=== PATIENT | male | born 1970 | race Caucasian/White ===

== ENCOUNTER 2017-12-06 11:53 | Emergency (ER) | END 2017-12-06 15:31 | disposition home or self-care (01) ==

== ENCOUNTER 2019-01-20 23:25 | Inpatient (IN) | payer OTHER ==
[~2019-01-20] VITALS: Ht 167.6 cm; Wt 98.9 kg
[~2019-01-20 23:25] MED LIST: ACET500C5 PO; ATOR40TA68 PO; CEPH500C PO; CIPR500T4 PO; DOCU-144 PO; DOXY100T20 PO; FENO145T25 PO; FERR160T11 PO; HYDR-762 PO; IBUP-1542 PO; INSU100I33 SC; Insulin Glargine SC; LANT3I SC; LIPA1CAP6 PO; LISI2.5T59 PO; LOSA50TA14 PO; METO-335 PO; Metformin Hcl PO; NICO-546 TRANSDERM; NOVO3I SC; OFLO5DRO46 RIGHT EYE; OMEP20CA9 PO; PEN1DIS.93 MC; PREG50CA PO; SACC250C9 PO; SIMV40TA3 PO; SITA1TAB5 PO; SULF1TAB31 PO; TAMS-14 PO
[2019-01-20 23:28] VITALS: Ht 167.6 cm; Wt 98.9 kg
[2019-01-21] VITALS (13 sets, daily range): BP systolic 127–166; BP diastolic 67–81; PULSE 72–98; RESP 13–18
[2019-01-21] MEDS ORDERED: KETOROLAC 30 MG INJ IV STA (00:23)
[2019-01-21] MEDS ORDERED: ACETAMINOPHEN 325 MG TAB PO PRN (07:30)
[2019-01-21] MEDS ORDERED: ONDANSETRON 4 MG INJ IV PRN ×3 (07:30→19:00)
[2019-01-21] MEDS ORDERED: LEVOFLOXACIN 500 MG TAB PO SCH (08:00)
[2019-01-21] MEDS ORDERED: hydrALAzine 20 MG INJ IV PRN ×2 (08:00→19:00)
[2019-01-21] MEDS ORDERED: morphine 2 MG INJ IV PRN (08:00)
[2019-01-21] MEDS ORDERED: KETOROLAC 30 MG INJ IV PRN (08:30)
[2019-01-21] MEDS ORDERED: LEVOFLOXACIN 500MG/D5W (PMX) 100 ML IVPB SCH (09:00)
[2019-01-21] MEDS: SOD CHLORIDE 0.9% 1,000 ML IV SCH ×2 (09:55→18:00)
[2019-01-21] MEDS: KETOROLAC 30 MG INJ IV PRN ×2 (11:14→23:50)
[2019-01-21] MEDS ORDERED: DEXTROSE 50% 50 ML SYRINGE IV PRN ×2 (13:00)
[2019-01-21] MEDS ORDERED: GLUCOSE GEL 15 GRAM TUBE PO PRN ×2 (13:00)
[2019-01-21] MEDS ORDERED: GLUCAGON 1 MG INJ IM PRN (13:00)
[2019-01-21] MEDS ORDERED: GLUCOSE GEL 15 GRAM TUBE BUCCAL PRN (13:00)
[2019-01-21] MEDS: INSULIN ASPART [NOVOLOG] 3 ML PEN SC SCH ×3 (13:09→20:43)
[2019-01-21] MEDS: NICOTINE (21 MG/24 HR) PATCH TRANSDERM SCH (13:13)
[2019-01-21] MEDS ORDERED: IOHEXOL 300MG/ML 30 ML BTL ONE (16:14)
[2019-01-21] MEDS ORDERED: SUCCINYLCHOLINE CHLORIDE 100 MG/5 ML SYG IV ONE (17:38)
[2019-01-21] MEDS ORDERED: GLYCOPYRROLATE 0.4 MG INJ ONE ×3 (17:38→18:15)
[2019-01-21] MEDS ORDERED: LIDOCAINE 2% (SDV) 5 ML INJ ONE (17:38)
[2019-01-21] MEDS ORDERED: NEOSTIGMINE 3 MG/3 ML SYRINGE ONE ×2 (17:38→18:15)
[2019-01-21] MEDS ORDERED: PROPOFOL 20 ML ONE (17:38)
[2019-01-21] MEDS ORDERED: ROCURONIUM 50 MG INJ ONE (17:38)
[2019-01-21] MEDS ORDERED: CEFAZOLIN 1 GM INJ ONE (18:15)
[2019-01-21] MEDS ORDERED: EPHEDrine 25 MG/5 ML SYG ONE (18:15)
[2019-01-21] MEDS ORDERED: FENTAnyl 50 MCG/ML VIAL ONE (18:49)
[2019-01-21] MEDS ORDERED: FENTAnyl 50 MCG/ML VIAL IV PRN ×3 (19:00)
[2019-01-21] MEDS ORDERED: DIPHENHYDRAMINE 50 MG INJ IV PRN (19:00)
[2019-01-21] MEDS ORDERED: METOCLOPRAMIDE 10 MG INJ IV PRN (19:00)
[2019-01-21] MEDS ORDERED: HYDROmorphONE 1 MG/5 ML IV SYRINGE IV PRN ×3 (19:00)
[2019-01-21] MEDS ORDERED: MIDAZOLAM 1 MG/ML 2 ML INJ IV PRN (19:00)
[2019-01-21] MEDS ORDERED: LABETALOL HCL 20MG INJ IV PRN (19:00)
[2019-01-21] MEDS ORDERED: MEPERIDINE 25 MG INJ IV PRN (19:00)
[2019-01-21] MEDS ORDERED: EPHEDrine 25 MG/5 ML SYG IV PRN (19:00)
[2019-01-21] MEDS ORDERED: INSULIN GLARGINE [LANTus] (100 UNITS/ML) SYG SC SCH (20:00)
[2019-01-21] MEDS: FAMOTIDINE 20 MG INJ IV SCH (20:45)
[2019-01-21] MEDS: HEPARIN 5,000 UNIT/1 ML VIAL SC SCH (21:00)
[2019-01-22] MEDS: INSULIN ASPART [NOVOLOG] 3 ML PEN SC SCH ×6 (01:32→20:34)
[2019-01-22 02:00] VITALS: BP 154/68; PULSE 89; RESP 17
[2019-01-22] MEDS: SOD CHLORIDE 0.9% 1,000 ML IV SCH ×2 (03:16→13:32)
[2019-01-22 08:00] VITALS: BP 159/70; PULSE 81; RESP 16
[2019-01-22] MEDS: HEPARIN 5,000 UNIT/1 ML VIAL SC SCH ×2 (08:40→20:35)
[2019-01-22] MEDS: FAMOTIDINE 20 MG INJ IV SCH ×2 (08:40→20:36)
[2019-01-22] MEDS: NICOTINE (21 MG/24 HR) PATCH TRANSDERM SCH (08:41)
[2019-01-22] MEDS ORDERED: BISACODYL 10 MG SUPP PR PRN (09:30)
[2019-01-22] MEDS ORDERED: BISACODYL (EC) 5 MG TAB PO PRN (09:30)
[2019-01-22] MEDS: POLYETHYLENE GLYCOL 17 GM PACKET PO SCH (09:51)
[2019-01-22] MEDS: KETOROLAC 30 MG INJ IV PRN (11:38)
[2019-01-22 14:00] VITALS: BP 153/70; PULSE 79; RESP 16
[2019-01-22] MEDS ORDERED: CEFTRIAXONE 1 GM/50 ML (PMX) 50 ML IVPB SCH (18:30)
[2019-01-22 20:00] VITALS: BP 163/80; PULSE 90; RESP 17
[2019-01-22] MEDS ORDERED: INSULIN GLARGINE [LANTus] (100 UNITS/ML) SYG SC SCH (20:00)
[2019-01-23 02:00] VITALS: BP 148/77; PULSE 87; RESP 17
[2019-01-23] MEDS: KETOROLAC 30 MG INJ IV PRN (02:54)
[2019-01-23 07:57] VITALS: BP 140/65; PULSE 77; RESP 16
[2019-01-23] MEDS: NICOTINE (21 MG/24 HR) PATCH TRANSDERM SCH (08:28)
[2019-01-23] MEDS: POLYETHYLENE GLYCOL 17 GM PACKET PO SCH (08:28)
[2019-01-23] MEDS: FAMOTIDINE 20 MG INJ IV SCH (08:28)
[2019-01-23] MEDS: HEPARIN 5,000 UNIT/1 ML VIAL SC SCH (08:29)
[2019-01-23] MEDS: INSULIN ASPART [NOVOLOG] 3 ML PEN SC SCH ×4 (08:29→12:24)
[2019-01-23] MEDS ORDERED: INSULIN GLARGINE [LANTus] (100 UNITS/ML) SYG SC ONE (11:00)
[2019-01-23] MEDS ORDERED: INSULIN GLARGINE [LANTus] (100 UNITS/ML) SYG SC SCH (20:00)
[2019-01-23] MEDS ORDERED: FAMOTIDINE 20 MG TAB PO SCH (21:00)
== END 2019-01-23 14:03 | disposition home or self-care (01) | DRG 660 ==
LOC: E/R 23:25 → PP2 01-21 04:58
PROVIDERS: ADMIT Internal Medicine; ATTEND Internal Medicine
PROC: 0TC68ZZ Extirpation of Matter from Right Ureter, Via Natural or Artificial Opening Endoscopic (ICD-10-PCS; 2019-01-21)
PROC: 0T768DZ Dilation of Right Ureter with Intraluminal Device, Via Natural or Artificial Opening Endoscopic (ICD-10-PCS; principal; 2019-01-21 17:30)
DX: N20.1 Calculus of ureter (principal); K86.1 Other chronic pancreatitis; I10 Essential (primary) hypertension; K76.0 Fatty (change of) liver, not elsewhere classified; F17.210 Nicotine dependence, cigarettes, uncomplicated; E78.00 Pure hypercholesterolemia, unspecified; E11.65 Type 2 diabetes mellitus with hyperglycemia; E66.9 Obesity, unspecified; D64.9 Anemia, unspecified; Z79.4 Long term (current) use of insulin
CPT/HCPCS: 36415; 71045; 74176; 74181; 74430; 76705; 78226; 80048; 80053; 80061; 81001; 81003; 82962; 83036; 83690; 83735; 84100; 85025; 85610; 85730; 87086; 88300; 93005; 96374; A9537; C2617; J0690; J0696; J1644; J1815; J1885; J1956; J2710; J3010; J7030; Q9967